=== PATIENT | male | born 1980 | race Two or more races ===

== ENCOUNTER 2018-04-05 17:22 | Emergency (ER) | payer SELFPAY ==
[~2018-04-05] VITALS: Ht 175.3 cm; Wt 105.0 kg
[2018-04-05 17:34] VITALS: BP 118/77
== END 2018-04-05 23:21 | disposition home or self-care (01) ==
LOC: ER 17:22
DX: B00.9 Herpesviral infection, unspecified (principal)
CPT/HCPCS: 99281